=== PATIENT | male | born 1985 | race Caucasian/White ===

== ENCOUNTER 2019-11-28 18:25 | Emergency (ER) | payer MEDICAID ==
[~2019-11-28] VITALS: Ht 172.7 cm; Wt 74.4 kg
[2019-11-28 20:10] VITALS: BP 144/95
[2019-11-28] MEDS ORDERED: cefTRIAXone SOD 1,000 MG VL IM ONE (20:15)
[2019-11-28] MEDS ORDERED: LIDOCAINE 1% HCL (LOCAL ANESTH.) INJ 20ML MDV IJ ONE (20:30)
== END 2019-11-28 20:54 | disposition home or self-care (01) ==
LOC: ER 18:28
DX: K04.7 Periapical abscess without sinus (principal); K02.9 Dental caries, unspecified
CPT/HCPCS: 96372; 99283; J0696; J2001

== ENCOUNTER 2020-09-21 12:45 | Emergency (ER) | payer MEDICAID, SELFPAY ==
[~2020-09-21] VITALS: Ht 172.7 cm; Wt 68.0 kg
[2020-09-21 12:47] VITALS: BP 125/82
[2020-09-21] MEDS ORDERED: ACETAMINOPHEN 500 MG TAB PO ONE (14:15)
[2020-09-21] MEDS ORDERED: cefTRIAXone SOD 1,000 MG VL IM ONE (14:15)
== END 2020-09-21 14:45 | disposition home or self-care (01) ==
LOC: ER 12:45
DX: U07.1 COVID-19 (principal); J02.9 Acute pharyngitis, unspecified
CPT/HCPCS: 36415; 71045; 87426; 96372; 99284; J0696

== ENCOUNTER 2021-09-27 01:29 | Emergency (ER) | payer MEDICAID, OTHER ==
[~2021-09-27] VITALS: Ht 172.7 cm; Wt 72.6 kg
[2021-09-27 01:49] VITALS: BP 146/79
[2021-09-27 08:10] LABS: Urine Bacteria NONE SEEN /hpf (None Seen); Urine Blood Negative /uL (Negative); Urine Specific Gravity 1.023 (1.001-1.035); Urine WBC 1 /hpf (0 - 3)
[2021-09-27 08:18] LABS: Barbiturate Scree,Urine NEGATIVE (NEGATIVE); Benzodiazephine Screen, Urine NEGATIVE (NEGATIVE); Cannabinoid Screen, Urine NEGATIVE (NEGATIVE); Cocaine Screen, Urine NEGATIVE (NEGATIVE); Opiate Scree,Urine NEGATIVE (NEGATIVE)
[2021-09-27 08:26] LABS: Amphetamine Screen, Urine POSITIVE (NEGATIVE); Phencyclidine Screen, Urine NEGATIVE (NEGATIVE)
== END 2021-09-27 09:54 | disposition home or self-care (01) ==
LOC: ER 01:29
DX: R44.1 Visual hallucinations (principal); Z88.8 Allergy status to other drugs, medicaments and biological substances
CPT/HCPCS: 80307; 81001

== ENCOUNTER 2021-09-29 14:46 | Emergency (ER) | payer MEDICAID ==
[~2021-09-29] VITALS: Ht 175.3 cm; Wt 73.5 kg
[2021-09-29 16:02] LABS: Basophils # (auto) 0 10 ^3/uL (0-0.2); Basophils % (auto) 0.4 % (0.0-2.0); Eosinophils # (auto) 0.2 10 ^3/uL (0-0.8); Eosinophils % (auto) 2.3 % (0.0-7.0); Hematocrit 42.9 % (41.0-53.0); Hemoglobin 14.7 g/dL (13.5-17.5); Lymphocytes # (auto) 1.8 10 ^3/uL (0.4-5.4); Lymphocytes % (auto) 23.6 % (10.0-50.0); Mean Corpuscular Hemoglobin 30.8 pg (28.0-32.0); Mean Corpuscular Hgb Conc. 34.2 g/dL (32.0-36.0); Mean Corpuscular Volume 90.1 fL (80.0-100.0); Monocytes # (auto) 0.8 10 ^3/uL (0-1.3); Neutrophils % (auto) 63.7 % (37.0-80.0); Nucleated Red Blood Cells % 0.1 %; Red Blood Cells 4.77 10^6/uL (4.5-5.90); Red Cell Distribution Width 13.3 % (11.8-14.3); White Blood Cell 7.8 10^3/uL (4.4-10.8)
[2021-09-29 16:24] LABS: Albumin 3.9 g/dL (3.4-5.0); Calcium 8.4 mg/dL (8.5-10.1)
[2021-09-29 16:29] LABS: BUN/Creatinine Ratio 9.5; Bilirubin, Total 1.2 mg/dL (0.2-1.0); Total Protein 7.3 g/dL (6.4-8.2)
[2021-09-29 17:26] VITALS: BP 121/73
== END 2021-09-29 19:45 | disposition home or self-care (01) ==
LOC: ER 14:46
DX: F41.9 Anxiety disorder, unspecified (principal); R00.2 Palpitations; F41.0 Panic disorder [episodic paroxysmal anxiety]; F12.10 Cannabis abuse, uncomplicated; F15.10 Other stimulant abuse, uncomplicated
CPT/HCPCS: 36415; 71045; 80053; 84443; 84484; 85025; 93005

== ENCOUNTER 2024-08-06 07:47 | Emergency (ER) | payer MEDICAID, OTHER ==
[~2024-08-06] VITALS: Ht 172.7 cm; Wt 69.8 kg
[2024-08-06 08:50] VITALS: BP 115/83; TEMP 97.5
[2024-08-06 08:58] VITALS: PULSE 56; RESP 16; O2SAT 99
[2024-08-06 09:37] LABS: Rapid Influenza A Negative (Negative); Rapid Influenza B Negative (Negative)
== END 2024-08-06 16:24 | disposition left against medical advice (07) ==
LOC: ER 07:47
DX: F41.9 Anxiety disorder, unspecified (principal); R09.81 Nasal congestion; Z20.822 Contact with and (suspected) exposure to COVID-19; Z88.8 Allergy status to other drugs, medicaments and biological substances
CPT/HCPCS: 87804

== ENCOUNTER 2024-12-22 11:12 | Emergency (ER) | payer OTHER ==
[~2024-12-22] VITALS: Ht 172.7 cm; Wt 72.3 kg
[2024-12-22 12:13] VITALS: BP 122/72; PULSE 64; RESP 18; TEMP 97.9; O2SAT 98
[2024-12-22 12:17] LABS: Urine Bacteria None Seen /hpf (None Seen)
[2024-12-22 12:28] LABS: Urine Blood Negative /uL (Negative); Urine Clarity Clear (Clear); Urine Color Light-Yellow (Yellow); Urine Protein, UAD Negative (Negative); Urine Specific Gravity 1.022 (1.001-1.035); Urine Squamous Epithelial Cell None Seen /hpf (<5); Urine Urobilinogen Normal (Negative); Urine WBC < 1 /HPF (0-3); Urine pH 5.5 (5.0-9.0)
--- NOTE | 2024-12-22 12:28 | ED.PDOC ---
General HPI Comments A 39 YEAR OLD MALE PRESENTS TO THE ED WITH CHIEF COMPLAINT OF URINARY FREQUENCY AND INSOMNIA. PATIENT REPORTS THAT HE HAS BEEN EXPERIENCING URGENCY AND FREQUENCY OF URINATING FOR THE PAST WEEK. PATIENT RELAYS THAT HE NEEDS TO GET UP MULTIPLE TIMES IN THE NIGHT TO URINATE AND IS UNABLE TO SLEEP THROUGH THE NIGHT DUE TO THIS. PATIENT STATES HE HAS HISTORY OF ANXIETY. PATIENT DENIES ANY DYSURIA, HEMATURIA, FEVER, CHILLS, OR ABDOMINAL PAIN. NO OTHER SYMPTOMS REPORTED AT THIS TIME OF CARE. Chief Complaint: Urinary Time Seen by MD: 12:23 Primary Care Provider: NONE Reviewed notes: Nurses Notes, Medications, Allergies Allergies: Coded Allergies: Thiothixene (Verified Allergy, Unknown, 09/21/20) Home Meds Active Scripts Hydroxyzine Hcl (Hydroxyzine Hcl) 50 Mg Tab, 1 TAB PO QPM, #20 TAB Prov:MADI GRAVES 12/22/24 Information Source: Patient Mode of Arrival: Ambulatory Severity: Moderate Inability to void: None Timing: Weeks Duration: Since onset, Days Prehospital treatment: None Onset: Spontaneous Symptoms: Frequency, Urgency History of: None Location: None Penile discharge: None Modifying factors: None associated signs and symptoms: Frequency, Urgency Past Medical History PAST MEDICAL HISTORY: Anxiety Surgical History: Denies all surgeries Family History Family History: Reviewed,noncontributory to illness, Unknown Social History Smoker: Unknown Alcohol: Unknown Drugs: Unknown Lives In: Homeless Constitutional: denies: chills, diaphoresis, fatigue, fever, malaise, sweats, weakness, others EENTM: denies: blurred vision, double vision, ear bleeding, ear discharge, ear drainage, ear pain, ear ringing, eye pain, eye redness, hearing loss, mouth pain, mouth swelling, nasal discharge, nose bleeding, nose congestion, nose pain, photophobia, tearing, throat pain, throat swelling, voice changes, others Respiratory: denies: cough, hemoptysis, orthopnea, SOB at rest, shortness of breath, SOB with excertion, stridor, wheezing, others Cardiovascular: denies: chest pain, dizzy spells, diaphoresis, Dyspnea on exertion, edema, irregular heart beat, left arm pain, lightheadedness, palpitations, PND, syncope, others Gastrointestinal: denies: abdomen distended, abdominal pain, blood streaked bowels, constipated, diarrhea, dysphagia, difficulty swallowing, hematemesis, me elisha, nausea, poor appetite, poor fluid intake, rectal bleeding, rectal pain, vomiting, others Genitourinary: reports: urgency; denies: burning, dysuria, flank pain, frequency, hematuria, incontinence, penile discharge, penile sore, pain, testicle pain, testicle swelling, others Neurological: denies: dizziness, fainting, headache, left sided numbness, left sided weakness, numbness, paresthesia, pre-existing deficit, right sided numbness, right sided weakness, seizure, speech problems, tingling, tremors, weakness, others Musculoskeletal: denies: back pain, gout, joint pain, joint swelling, muscle pain, muscle stiffness, neck pain, others Integumetry: denies: bruises, change in color, change in hair/nails, dryness, laceration, lesions, lumps, rash, wounds, others Allergic/Immunocompromised: denies: Difficulty Healing, Frequent Infections, Hives, Itching, others Hematologic/Lymphatic: denies: anemia, blood clots, easy bleeding, easy bruising, swollen glands, others Endocrine: denies: excessive hunger, excessive sweating, excessive thirst, excessive urination, flushing, intolerance to cold, intolerance to heat, unexplained weight gain, unexplained weight loss, others Psychiatric: denies: anxiety, bipolar disorder, depression, hopeless, panic disorder, schizophrenia, sleepless, suicidal, others All Other Systems: Reviewed and Negative Physical Exam General Appearance: No Apparent Distress, Normal HEENT: Normal ENT Inspection, PERRL/EOMI, Pharynx Normal Neck: Full Range of Motion, Non-Tender, Normal, Normal Inspection Respiratory: Chest Non-Tender, Lungs Clear, No Accessory Muscle Use, No Respiratory Distress, Normal Breath Sounds Cardiovascular: No Edema, No JVD, No Murmur, No Gallop, Normal Peripheral Pulses, Regular Rate/Rhythm Breast Exam: Deferred Gastrointestinal: No Organomegaly, Non Tender, No Pulsatile Mass, Normal Bowel Sounds, Soft Genitalia: Deferred Pelvic: Deferred Rectal: Deferred Extremities: No calf tenderness, Normal capillary refill, Normal inspection, Normal range of motion, Non-tender, No pedal edema Musculoskeletal : Apperance: Normal Neurologic: Alert, 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 Was a procedure done?: No Differential Diagnosis Kidney stone (Female): N/A Urinary Problem (Male): Urolithiasis, UTI Urinary Problem (Female): UTI Other Differential Diagnosis ANXIETY REACTION X-Ray, Labs, Meds, VS Vital Signs Date Time Temp Pulse Resp B/P (MAP) Pulse Ox O2 Delivery O2 Flow Rate FiO2 12/22/24 12:13 97.9 64 18 122/72 (89) 98 97.9 12/22/24 12:13 64 18 98 Room Air 12/22/24 11:39 97.9 64 18 122/72 (89) 98 Lab Test 12/22/24 12:13 Range/Units Urine Color Light-yellow Yellow Urine Clarity Clear Clear Urine pH 5.5 5.0-9.0 Urine Specific [place] 1.022 1.001-1.035 Urine Protein Negative Negative Urine Ketones Negative Negative Urine Blood Negative Negative /uL Urine Nitrite Negative Negative Urine Bilirubin Negative Negative Urine Urobilinogen Normal Negative mg/dL Urine Leukocyte Esterase Negative Negative /uL Urine RBC None seen 0 - 3 /hpf Urine Microscopic WBC < 1 0-3 /HPF Urine Squamous Epithelial Cells None seen <5 /hpf Urine Bacteria None seen None Seen /hpf Urine Glucose Normal Normal mg/dL X-Ray, Labs, Meds, VS Comment EXTERNAL MEDICAL RECORDS REVIEWED: [NONE] INDEPENDENT HISTORIANS: [NONE] SOCIAL DETERMINANTS OF HEALTH: [NONE] LABS ORDERED: NONE REVIEWED AND INTERPRETED RESULTS: UA: NEGATIVE TEST IMAGING ORDERED: NONE TREATMENTS ORDERED: NONE PROCEDURES PERFORMED: NONE CRITICAL CARE TIME: NONE I HAVE DISCUSSED THE PATIENT WITH THE ATTENDING PHYSICIAN DR. MEDEIROS AND HE AGREES WITH THE PATIENT'S PLAN OF CARE AND DISPOSITION. BASED ON HISTORY OF PRESENT ILLNESS, AND PHYSICAL EXAM, PATIENT WILL BE DISCHARGED HOME. DISCUSSED PLAN FOR DISCHARGE HOME WITH RX. MEDICATION WARNINGS GIVEN. SHARED DECISION MAKING: DISCUSSED WITH PATIENT THAT THEIR WORKUP WAS NORMAL. PATIENT INSTRUCTED TO FOLLOW UP WITH PRIMARY CARE PROVIDER IN 1-2 DAYS FOR RE- EVALUATION OF SYMPTOMS. PATIENT VERBALIZES UNDERSTANDING TO RETURN TO ED FOR NEW OR WORSENING SYMPTOMS OR IF FOLLOW UP WITH PCP CANNOT BE OBTAINED. PATIENT FEELS COMFORTABLE GOING HOME AT THIS TIME. ALL QUESTIONS ADDRESSED AT TIME OF DISCHARGE. Time of 1ST Reevaluation: 12:32 Reevaluation 1ST: Improved Patient Education/Counseling: Diagnosis, Treatment, Need For Follow Up Family Education/Counseling: Diagnosis, Treatment, No Family Present Medical Screening: No EMC Exist At This Time Departure 1 Departure Time of Disposition: 12:32 Impression: Primary Impression: Anxiety reaction Disposition: 01 HOME / SELF CARE / HOMELESS Condition: Stable Additional Instructions: FOLLOW-UP WITH PCP IN 1 TO 2 DAYS. TAKE MEDICATIONS PRESCRIBED. RETURN TO ED FOR ANY NEW OR WORSENING SYMPTOMS. e-Prescriptions Hydroxyzine Hcl (Hydroxyzine Hcl) 50 Mg Tab 1 TAB PO QPM, #20 TAB Prov: MADI GRAVES 12/22/24 Discharged With: Self Critical Care Note Critical Care Time?: No Stability Stability form required: No Heart Score Heart Score: Heart Score Response (Comments) Value History N/A 0 EKG N/A 0 Age N/A 0 Risk Factors N/A 0 Troponin N/A 0 Total 0 I personally scribed for MADI GRAVES ([email or web address]) on 12/22/24 at 12:28. Electronically submitted by Wilfrid Corrales ([email or web address]). I personally scribed for MADI GRAVES ([email or web address]) on 12/22/24 at 12:28. Electronically submitted by Wilfrid Corrales ([email or web address]). MADI GRAVES Dec 22, 2024 12:28
[2024-12-22] MEDS ORDERED: HYDR50TA69 PO (12:38)
== END 2024-12-22 12:46 | disposition home or self-care (01) ==
LOC: ER 11:12
DX: F41.1 Generalized anxiety disorder (principal); G47.00 Insomnia, unspecified; R35.0 Frequency of micturition; Z59.00 Homelessness unspecified; Z79.899 Other long term (current) drug therapy; Z88.8 Allergy status to other drugs, medicaments and biological substances
CPT/HCPCS: 81001

== ENCOUNTER 2025-02-14 13:33 | Emergency (ER) | payer OTHER ==
[~2025-02-14] VITALS: Ht 172.7 cm; Wt 71.7 kg
[~2025-02-14 13:33] MED LIST: HYDR50TA69 PO
--- NOTE | 2025-02-14 14:08 | ED.PDOC ---
History of Present Illness HPI Comments 40 year old male presents to the ED with a chief complaint of insomnia onset 2 months. For the past two months, patient has been experiencing trouble sleeping, restless and has noticed urinary frequency. PMHx anxiety. Denies chest pain, shortness of breath, abdominal pain, dysuria, hematuria, dizziness, nausea, vomiting, diarrhea. No other symptoms or modifying factors present at this time. Time Seen by MD: 14:05 Primary Care Provider: NONE Reviewed Notes: Medications, Allergies Allergies: Coded Allergies: Thiothixene (Verified Allergy, Unknown, 09/21/20) Home Meds Active Scripts Hydroxyzine Hcl (Hydroxyzine Hcl) 50 Mg Tab, 1 TAB PO QPM, #20 TAB Prov:PHOEBE WAGNER MD 02/14/25 Information Source: Patient Mode of Arrival: Ambulatory Severity: Moderate Timing: Months Duration: Since onset Prehospital treatment: None Past Medical History PAST MEDICAL HISTORY: Anxiety Surgical History: Denies all surgeries Family History Family History: Reviewed,noncontributory to illness, Unknown Social History Smoker: Non-Smoker Alcohol: Denies ETOH Use Drugs: Denies Drug Use Lives In: Homeless Constitutional: denies: chills, diaphoresis, fatigue, fever, malaise, sweats, weakness, others EENTM: denies: blurred vision, double vision, ear bleeding, ear discharge, ear drainage, ear pain, ear ringing, eye pain, eye redness, hearing loss, mouth pain, mouth swelling, nasal discharge, nose bleeding, nose congestion, nose pain, photophobia, tearing, throat pain, throat swelling, voice changes, others Respiratory: denies: cough, hemoptysis, orthopnea, SOB at rest, shortness of breath, SOB with excertion, stridor, wheezing, others Cardiovascular: denies: chest pain, dizzy spells, diaphoresis, Dyspnea on exertion, edema, irregular heart beat, left arm pain, lightheadedness, palpitations, PND, syncope, others Gastrointestinal: denies: abdomen distended, abdominal pain, blood streaked bowels, constipated, diarrhea, dysphagia, difficulty swallowing, hematemesis, melena, nausea, poor appetite, poor fluid intake, rectal bleeding, rectal pain, vomiting, others Genitourinary: denies: burning, dysuria, flank pain, frequency, hematuria, incontinence, penile discharge, penile sore, pain, testicle pain, testicle swelling, urgency, others Neurological: denies: dizziness, fainting, headache, left sided numbness, left sided weakness, numbness, paresthesia, pre-existing deficit, right sided numbness, right sided weakness, seizure, speech problems, tingling, tremors, weakness, others Musculoskeletal: denies: back pain, gout, joint pain, joint swelling, muscle pain, muscle stiffness, neck pain, others Integumetry: denies: bruises, change in color, change in hair/nails, dryness, laceration, lesions, lumps, rash, wounds, others Allergic/Immunocompromised: denies: Difficulty Healing, Frequent Infections, Hives, Itching, others Hematologic/Lymphatic: denies: anemia, blood clots, easy bleeding, easy bruising, swollen glands, others Endocrine: denies: excessive hunger, excessive sweating, excessive thirst, excessive urination, flushing, intolerance to cold, intolerance to heat, unexplained weight gain, unexplained weight loss, others Psychiatric: reports: sleepless; denies: anxiety, bipolar disorder, depression, hopeless, panic disorder, schizophrenia, suicidal, others All Other Systems: Reviewed and Negative Physical Exam General Appearance: No Apparent Distress HEENT: Normal ENT Inspection, Pharynx Normal, TMs Normal Neck: Full Range of Motion, Non-Tender, Normal, Normal Inspection Respiratory: Chest Non-Tender, Lungs Clear, No Accessory Muscle Use, No Respiratory Distress, Normal Breath Sounds Cardiovascular: No Edema, No JVD, No Murmur, No Gallop, Normal Peripheral Pulses, Regular Rate/Rhythm Breast Exam: Deferred Gastrointestinal: No Organomegaly, Non Tender, No Pulsatile Mass, Normal Bowel Sounds, Soft Genitalia: Deferred Pelvic: Deferred Rectal: Deferred Extremities: No calf tenderness, Normal capillary refill, Normal inspection, Normal range of motion, Non-tender, No pedal edema Musculoskeletal : Apperance: Normal Neurologic: Alert, 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 Was a procedure done?: No Differential Dx Considerations may include: Anxiety, insomnia X-Ray, Labs, Meds, VS Vital Signs Date Time Temp Pulse Resp B/P (MAP) Pulse Ox O2 Delivery O2 Flow Rate FiO2 02/14/25 14:14 98.9 75 17 114/73 (87) 95 98.9 Lab Test 02/14/25 14:21 02/14/25 13:57 Range/Units White Blood Count 7.6 4.4-10.8 10^3/uL Red Blood Count 4.67 4.5-5.90 10^6/uL Hemoglobin 14.5 13.5-17.5 g/dL Hematocrit 41.4 41.0-53.0 % Mean Corpuscular Volume 88.6 80.0-100.0 fL Mean Corpuscular Hemoglobin 31.0 28.0-32.0 pg Mean Corpuscular Hemoglobin Concent 35.0 32.0-36.0 g/dL Red Cell Distribution Width 13.4 11.8-14.3 % Platelet Count 309 140-450 10^3/uL Mean Platelet Volume 7.2 6.9-10.8 fL Neutrophils (%) (Auto) 68.5 37.0-80.0 % Lymphocytes (%) (Auto) 21.2 10.0-50.0 % Monocytes (%) (Auto) 8.4 0.0-12.0 % Eosinophils (%) (Auto) 1.7 0.0-7.0 % Basophils (%) (Auto) 0.2 0.0-2.0 % Neutrophils # (Auto) 5.2 1.6-8.6 10 ^3/uL Lymphocytes # (Auto) 1.6 0.4-5.4 10 ^3/uL Monocytes # (Auto) 0.6 0-1.3 10 ^3/uL Eosinophils # (Auto) 0.1 0-0.8 10 ^3/uL Basophils # (Auto) 0 0-0.2 10 ^3/uL Nucleated Red Blood Cells 0.2 % Sodium Level 141 136-145 mmol/L Potassium Level 4.0 3.5-5.1 mmol/L Chloride Level 104 98-107 mmol/L Carbon Dioxide Level 28 20-31 mmol/L Anion Gap 9 5-15 Blood Urea Nitrogen 13 9-23 mg/dL Creatinine 0.94 0.700-1.30 mg/dL Glomerular Filtration Rate Calc 105 >90 mL/min BUN/Creatinine Ratio 13.8 10.0-20.0 Serum Glucose 91 74-106 mg/dL Calcium Level Pending Urine Color Yellow Yellow Urine Clarity Clear Clear Urine pH 5.5 5.0-9.0 Urine Specific [place] 1.029 1.001-1.035 Urine Protein Negative Negative Urine Ketones Negative Negative Urine Blood Negative Negative /uL Urine Nitrite Negative Negative Urine Bilirubin Negative Negative Urine Urobilinogen 2 H Negative mg/dL Urine Leukocyte Esterase Negative Negative /uL Urine RBC <1 0 - 3 /hpf Urine Microscopic WBC < 1 0-3 /HPF Urine Squamous Epithelial Cells None seen <5 /hpf Urine Bacteria None seen None Seen /hpf Urine Mucus Few None Seen Urine Glucose Normal Normal mg/dL Urine Opiates Screen Neg NEGATIVE Urine Fentanyl Screen Neg NEGATIVE Urine Barbiturates Screen Neg NEGATIVE Urine Phencyclidine Screen Neg NEGATIVE Urine Amphetamines Screen Neg NEGATIVE Urine Benzodiazepines Screen Neg NEGATIVE Urine Cocaine Screen Neg NEGATIVE Urine Cannabinoids Screen Neg NEGATIVE The urine tox is negative The urine test is negative for infection The patient's CBC and chemistry panel are within normal limits The patient was being discharged and will follow up with his primary care doctor The patient was diagnosis is anxiety Time of 1ST Reevaluation: 14:35 Reevaluation 1ST: Unchanged Time of 2ND Reevaluation: 15:04 Reevaluation 2ND: Improved Patient Education/Counseling: Diagnosis, Treatment, Prognosis, Need For Follow Up Family Education/Counseling: No Family Present Departure 1 Departure Time of Disposition: 15:04 Impression: Primary Impression: Anxiety Disposition: 01 HOME / SELF CARE / HOMELESS Condition: Fair e-Prescriptions Hydroxyzine Hcl (Hydroxyzine Hcl) 50 Mg Tab 1 TAB PO QPM, #20 TAB Prov: PHOEBE WAGNER MD 02/14/25 Discharged With: Self Critical Care Note Critical Care Time?: No Stability Stability form required: No Heart Score Heart Score: Heart Score Response (Comments) Value History N/A 0 EKG N/A 0 Age N/A 0 Risk Factors N/A 0 Troponin N/A 0 Total 0 I personally scribed for PHOEBE WAGNER MD ([email or web address]) on 02/14/25 at 14:08. Electronically submitted by Elissa Taylor ([email or web address]). PHOEBE WAGNER MD Feb 14, 2025 14:08
[2025-02-14 14:14] VITALS: TEMP 98.9
[2025-02-14 14:25] LABS: Urine Bacteria None Seen /hpf (None Seen)
[2025-02-14 14:32] LABS: Basophils # (auto) 0 10 ^3/uL (0-0.2); Basophils % (auto) 0.2 % (0.0-2.0); Eosinophils # (auto) 0.1 10 ^3/uL (0-0.8); Eosinophils % (auto) 1.7 % (0.0-7.0); Hematocrit 41.4 % (41.0-53.0); Hemoglobin 14.5 g/dL (13.5-17.5); Lymphocytes # (auto) 1.6 10 ^3/uL (0.4-5.4); Lymphocytes % (auto) 21.2 % (10.0-50.0); Mean Corpuscular Volume 88.6 fL (80.0-100.0); Monocytes # (auto) 0.6 10 ^3/uL (0-1.3); Monocytes % (auto) 8.4 % (0.0-12.0); Neutrophils # (auto) 5.2 10 ^3/uL (1.6-8.6); Neutrophils % (auto) 68.5 % (37.0-80.0); Nucleated Red Blood Cells % 0.2 %; Platelet Count (auto) 309 10^3/uL (140-450); Red Blood Cells 4.67 10^6/uL (4.5-5.90); Red Cell Distribution Width 13.4 % (11.8-14.3); White Blood Cell 7.6 10^3/uL (4.4-10.8)
[2025-02-14 14:35] LABS: Urine Blood Negative /uL (Negative); Urine Clarity Clear (Clear); Urine Color Yellow (Yellow); Urine Mucus FEW (None Seen); Urine Protein, UAD Negative (Negative); Urine Specific Gravity 1.029 (1.001-1.035); Urine Squamous Epithelial Cell None Seen /hpf (<5); Urine Urobilinogen 2 mg/dL (Negative); Urine WBC < 1 /HPF (0-3); Urine pH 5.5 (5.0-9.0)
[2025-02-14 14:45] LABS: Chloride 104 mmol/L (98-107); Sodium 141 mmol/L (136-145)
[2025-02-14 14:46] LABS: Anion Gap 9 (5-15); Carbon Dioxide 28 mmol/L (20-31)
[2025-02-14 14:51] LABS: Glucose 91 mg/dL (74-106)
[2025-02-14 14:51] LABS: Amphetamine Screen, Urine Neg (NEGATIVE)
[2025-02-14 14:52] LABS: Barbiturate Scree,Urine Neg (NEGATIVE); Benzodiazephine Screen, Urine Neg (NEGATIVE); Cannabinoid Screen, Urine Neg (NEGATIVE); Cocaine Screen, Urine Neg (NEGATIVE); Opiate Scree,Urine Neg (NEGATIVE); Phencyclidine Screen, Urine Neg (NEGATIVE)
[2025-02-14 14:52] LABS: BUN/Creatinine Ratio 13.8 (10.0-20.0); Blood Urea Nitrogen 13 mg/dL (9-23)
[2025-02-14] MEDS ORDERED: HYDR50TA69 PO (15:01)
[2025-02-14 15:05] LABS: Calcium 9.9 mg/dL (8.7-10.4)
[2025-02-14 15:11] VITALS: BP 117/74; PULSE 69; RESP 18; O2SAT 97
[2025-02-15] MEDS ORDERED: TAMS0.4C39 PO (22:42)
== END 2025-02-14 15:13 | disposition home or self-care (01) ==
LOC: ER 13:33
DX: F41.9 Anxiety disorder, unspecified (principal); G47.00 Insomnia, unspecified; Z59.00 Homelessness unspecified; Z79.899 Other long term (current) drug therapy
CPT/HCPCS: 36415; 80048; 80307; 81001; 85025

== ENCOUNTER 2025-02-15 19:52 | Emergency (ER) | payer OTHER ==
[~2025-02-15] VITALS: Ht 172.7 cm; Wt 73.0 kg
[2025-02-15 21:07] LABS: Urine Bacteria None Seen /hpf (None Seen)
--- NOTE | 2025-02-15 21:25 | DVH ---
Exam: CT CT AB PEL WO CON-NO ORAL OR IV History: LOWER-MID ABD PX Comparison Study: None available at time of dictation. TECHNIQUE: Multidetector CT of the abdomen was performed from lung bases to pubic symphysis. Imaging was performed without IV contrast. Axial, coronal and sagittal multiplanar reformats were obtained fr om the axial data set by the technologist. Radiation Dose Information: CT Dose: CTDI volume is 6.51 mGy. Dose-length product is 393.07 mGy*cm FINDINGS: Evaluation of solid organs is limited due to lack of intravenous contrast use. Findings: Lung Bases: No acute or significant lung base finding. Normal heart size. No pleural or pericardial effusion. Liver: The liver is normal in size. No focal lesions. Gallbladder and Biliary Tree: Unremarkable Spleen: Unremarkable Pancreas: The pancreas is grossly normal in appearance. Adrenal Glands: Unremarkable Kidneys: Kidneys are grossly normal without calculi or hydronephrosis. Bladder: Grossly unremarkable for degree of distention. Bowel: The stomach is grossly normal in appearance. Small bowel and colon are normal in caliber and d istribution. Large stool burden rectosigmoid colon. 6-7 cm stool-filled rectum The appendix is not visualized; however, no secondary findings of acute appendicitis identified. Ascites: Absent Lymphadenopathy: No mesenteric, retroperitoneal or periportal lymphadenopathy. Abdominal Wall and Mesentery: Unremarkable. Vasculature: The visualized abdominal aorta is normal in size and caliber. Evaluation of abdominal a nd pelvic vessels is limited due to lack of intravenous contrast. Pelvic Organs: Unremarkable Musculoskeletal: No aggressive focal bony lesions, acute fractures or dislocation. Soft tissues: Unremarkable IMPRESSION: 1. No findings of bowel obstruction however there is a large stool burden throughout the colon especi ally in the rectosigmoid colon with a 6-7 cm stool-filled rectum. 2. Large food and liquid distended stomach. This may represent gastroparesis. Is patient on GLP medi cation 3. Gallbladder is contracted and there is no calcified gallstones. 4. No findings of pneumoperitoneum. Radiation optimization: All CT scans at this facility use at least one of these dose optimization te chniques: automated exposure control mA and/or kV adjustment per patient size (includes targeted exa ms where dose is matched to clinical indication) or iterative reconstruction.
[2025-02-15 21:26] LABS: Amphetamine Screen, Urine Neg (NEGATIVE)
[2025-02-15 21:37] LABS: Urine Blood Negative /uL (Negative); Urine Clarity Clear (Clear); Urine Color Yellow (Yellow); Urine Mucus FEW (None Seen); Urine Protein, UAD Negative (Negative); Urine Specific Gravity 1.034 (1.001-1.035); Urine Squamous Epithelial Cell FEW /hpf (<5); Urine Urobilinogen 3 mg/dL (Negative); Urine WBC 1 /HPF (0-3)
[2025-02-15 21:38] LABS: Barbiturate Scree,Urine Neg (NEGATIVE); Benzodiazephine Screen, Urine Neg (NEGATIVE); Cannabinoid Screen, Urine Neg (NEGATIVE); Cocaine Screen, Urine Neg (NEGATIVE); Opiate Scree,Urine Neg (NEGATIVE); Phencyclidine Screen, Urine Neg (NEGATIVE)
[2025-02-15] MEDS ORDERED: TAMS0.4C39 PO (22:42)
--- NOTE | 2025-02-15 22:42 | ED.PDOC ---
General HPI Comments PT PRESENTS FOR CC OF LOWER ABD PAIN WITH DYSURIA AND URINARY X2 WEEKS. PATIENT WAS STATES PATIENT WAS RECENTLY SEEN HERE FOR SAME COMPLAINT HAD A URINE DONE HAS BEEN NO IMAGING. CONTINUES WITH THE SYMPTOMS. DENIES NAUSEA, VOMITING, FEVER, CHILLS, CHEST PAIN, SHORTNESS BREATH, DIFFICULTY BREATHING, DIARRHEA. Chief Complaint: Abdominal Pain Time Seen by MD: 20:27 Primary Care Provider: none Reviewed notes: Nurses Notes, Medications, Allergies Allergies: Coded Allergies: Thiothixene (Verified Allergy, Unknown, 09/21/20) Home Meds Active Scripts Tamsulosin Hcl (Tamsulosin Hcl) 0.4 Mg Cap, 1 CAP PO DAILY for 14 Days, #15 CAP Prov:MARTI BERNSTEIN 02/15/25 Hydroxyzine Hcl (Hydroxyzine Hcl) 50 Mg Tab, 1 TAB PO QPM, #20 TAB Prov:PHOEBE WAGNER MD 02/14/25 Information Source: Patient Mode of Arrival: Ambulatory Past Medical History PAST MEDICAL HISTORY: Anxiety Surgical History: Denies all surgeries Family History Family History: Reviewed,noncontributory to illness, Unknown Social History Smoker: Non-Smoker Alcohol: Denies ETOH Use Drugs: Denies Drug Use Lives In: Homeless Constitutional: denies: chills, diaphoresis, fatigue, fever, malaise, sweats, weakness, others EENTM: denies: blurred vision, double vision, ear bleeding, ear discharge, ear drainage, ear pain, ear ringing, eye pain, eye redness, hearing loss, mouth pain, mouth swelling, nasal discharge, nose bleeding, nose congestion, nose pain, photophobia, tearing, throat pain, throat swelling, voice changes, others Respiratory: denies: cough, hemoptysis, orthopnea, SOB at rest, shortness of breath, SOB with excertion, stridor, wheezing, others Cardiovascular: denies: chest pain, dizzy spells, diaphoresis, Dyspnea on exertion, edema, irregular heart beat, left arm pain, lightheadedness, palpitations, PND, syncope, others Gastrointestinal: reports: abdominal pain; denies: abdomen distended, blood streaked bowels, constipated, diarrhea, dysphagia, difficulty swallowing, hematemesis, melena, nausea, poor appetite, poor fluid intake, rectal bleeding, rectal pain, vomiting, others Genitourinary: reports: frequency; denies: burning, dysuria, flank pain, hematuria, incontinence, penile discharge, penile sore, pain, testicle pain, testicle swelling, urgency, others Neurological: denies: dizziness, fainting, headache, left sided numbness, left sided weakness, numbness, paresthesia, pre-existing deficit, right sided numbness, right sided weakness, seizure, speech problems, tingling, tremors, weakness, others Musculoskeletal: denies: back pain, gout, joint pain, joint swelling, muscle pain, muscle stiffness, neck pain, others Integumetry: denies: bruises, change in color, change in hair/nails, dryness, laceration, lesions, lumps, rash, wounds, others Allergic/Immunocompromised: denies: Difficulty Healing, Frequent Infections, Hives, Itching, others Hematologic/Lymphatic: denies: anemia, blood clots, easy bleeding, easy bruising, swollen glands, others Endocrine: denies: excessive hunger, excessive sweating, excessive thirst, excessive urination, flushing, intolerance to cold, intolerance to heat, unexplained weight gain, unexplained weight loss, others Psychiatric: denies: anxiety, bipolar disorder, depression, hopeless, panic disorder, schizophrenia, sleepless, suicidal, others Physical Exam General Appearance: No Apparent Distress, Normal HEENT: Pharynx Normal Neck: Full Range of Motion, Non-Tender Respiratory: Chest Non-Tender, Lungs Clear, No Accessory Muscle Use, No Respiratory Distress, Normal Breath Sounds Cardiovascular: No Edema, No JVD, No Murmur, No Gallop, Normal Peripheral Pulses, Regular Rate/Rhythm Breast Exam: Deferred Gastrointestinal: No Organomegaly, No Pulsatile Mass, Soft, Suprapubic, Tenderness Genitalia: Deferred Pelvic: Deferred Rectal: Deferred Extremities: Normal capillary refill, Normal inspection, Normal range of motion, Non-tender, No pedal edema Musculoskeletal : Apperance: Normal Neurologic: Alert, 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 Was a procedure done?: No Differential Diagnosis Kidney stone (Female): Strain, Urolithiasis Kidney stone (Male): Pyelonephritis X-Ray, Labs, Meds, VS Vital Signs Date Time Temp Pulse Resp B/P (MAP) Pulse Ox O2 Delivery O2 Flow Rate FiO2 02/15/25 19:53 98.1 72 18 136/78 (97) 96 98.1 Lab Test 02/15/25 21:04 Range/Units Urine Color Yellow Yellow Urine Clarity Clear Clear Urine pH 6.0 5.0-9.0 Urine Specific [place] 1.034 1.001-1.035 Urine Protein Negative Negative Urine Ketones Trace Negative Urine Blood Negative Negative /uL Urine Nitrite Negative Negative Urine Bilirubin Negative Negative Urine Urobilinogen 3 H Negative mg/dL Urine Leukocyte Esterase Negative Negative /uL Urine RBC <1 0 - 3 /hpf Urine Microscopic WBC 1 0-3 /HPF Urine Squamous Epithelial Cells Few <5 /hpf Urine Bacteria None seen None Seen /hpf Urine Mucus Few None Seen Urine Glucose Normal Normal mg/dL Urine Opiates Screen Neg NEGATIVE Urine Fentanyl Screen Neg NEGATIVE Urine Barbiturates Screen Neg NEGATIVE Urine Phencyclidine Screen Neg NEGATIVE Urine Amphetamines Screen Neg NEGATIVE Urine Benzodiazepines Screen Neg NEGATIVE Urine Cocaine Screen Neg NEGATIVE Urine Cannabinoids Screen Neg NEGATIVE X-Ray, Labs, Meds, VS Comment IMPRESSION: 1. No findings of bowel obstruction however there is a large stool burden throughout the colon especially in the rectosigmoid colon with a 6-7 cm stool- filled rectum. 2. Large food and liquid distended stomach. This may represent gastroparesis. Is patient on GLP medication 3. Gallbladder is contracted and there is no calcified gallstones. 4. No findings of pneumoperitoneum. PATIENT WAS STATES NON ANY GLP MEDICATIONS HE DOES STATE EAT A LARGE MEAL JUST PRIOR TO COME IN. UA CBC CMP ALL WITHIN NORMAL LIMITS. SHE WAS LIKELY SECONDARY TO POSSIBLY ENLARGED PROSTATE WE WILL TRIAL TAMSULOSIN ADVISED TO TAKE MEDICATION HAS BEEN VERY SHOWN EFFECTS DISCUSSED. ADVISED PATIENT TO FOLLOW UP WITH HIS PRIMARY CARE DOCTOR IN TWO DAYS CONSIDER FURTHER BLOOD WORK AND IMAGING IF SYMPTOMS PERSIST. ADVISED TO REST INCREASE P.O. FLUIDS WITH ELECTROLYTES ER RETURN PRECAUTIONS GIVEN PATIENT WAS STATES UNDERSTANDING AGREES WITH DISCHARGE PLAN OF CARE Time of 1ST Reevaluation: 00:00 Reevaluation 1ST: Improved Patient Education/Counseling: Diagnosis, Treatment, Prognosis, Need For Follow Up Family Education/Counseling: No Family Present Departure 1 Departure Time of Disposition: 22:41 Impression: Primary Impression: Dysuria Disposition: HOME / SELF CARE / HOMELESS Condition: Stable e-Prescriptions Tamsulosin Hcl (Tamsulosin Hcl) 0.4 Mg Cap 1 CAP PO DAILY for 14 Days, #15 CAP Prov: MARTI BERNSTEIN 02/15/25 Discharged With: Self Critical Care Note Critical Care Time?: No Stability Stability form required: MARTI Crocker Feb 15, 2025 22:42
[2025-02-15 23:59] VITALS: BP 118/64; TEMP 98
[2025-02-16] VITALS: PULSE 65; RESP 16; O2SAT 99
== END 2025-02-16 00:11 | disposition home or self-care (01) ==
LOC: ER 19:52
DX: R30.0 Dysuria (principal); F41.9 Anxiety disorder, unspecified; Z59.00 Homelessness unspecified; Z88.1 Allergy status to other antibiotic agents; Z79.899 Other long term (current) drug therapy
CPT/HCPCS: 74176; 80307; 81001